=== PATIENT | male | born 1970 | race Caucasian/White ===

== ENCOUNTER → 2017-12-08 09:39 | Outpatient (CLI) | payer OTHER, SELFPAY | PROVIDERS: Visit Provider Physician Assistant Surgical | DX: S90.31XA Contusion of right foot, initial encounter (principal) | CPT/HCPCS: 73630 ==

== ENCOUNTER → 2017-12-25 08:08 | Outpatient (CLI) | payer OTHER, SELFPAY ==
--- NOTE | 2017-12-25 08:10 | RAD_ITS ---
STUDY: X-RAY - RIGHT FOOT CLINICAL: Male, 47 years old. Fracture great toe TECHNIQUE: 3 view(s) of the foot. COMPARISON: 9.7.18 FINDINGS: There is an enthesophyte involving the posterior superior calcaneus at the site of insertion of the Achilles tendon. Normal visualized subtalar, talonavicular, calcaneocuboid, tarsal and tarsometatarsal articulations. Normal metatarsi. Normal metatarsophalangeal joint of the great toe. Normal tibial and fibular sesamoid bones. Normal interphalangeal joint of the great toe. Comminuted fracture tuft of the first digit. Alignment is unchanged. Normal second through fifth metatarsophalangeal joints. Normal interphalangeal joints and phalanges of the lesser toes. The soft tissue structures are unremarkable. RAD/Foot min 3 Views IMPRESSION: Comminuted fracture tuft of the first digit. No evidence for osseous union. Electronically Signed: Lucho Spencer MD at 16:51 EDT , Service support ,
== END ==
PROVIDERS: Visit Provider Physician Assistant Surgical
DX: S92.401A Displaced unspecified fracture of right great toe, initial encounter for closed fracture (principal)
CPT/HCPCS: 73630